=== PATIENT | female | born 1965 | race Caucasian/White ===

== ENCOUNTER 2018-01-29 12:31 | Outpatient (REF) | payer BC, SELFPAY ==
--- NOTE | 2018-01-29 11:00 | ENDOMET_PTH ---
PATIENT: Rosy Crowe LOC: [facility] U#:[id number] AGE/SX: 52/F ROOM: RE01/29/[address]: Avril Montgomery : 1965 BED: DIS: 01/29/2018 SPEC #: [id number] RECD: 01/29/18 12:50 STATUS: WAGNER REQ #: [id number] AMI: 01/29/18 11:[address]: Avril Montgomery DEPT: Surgical Specimen RECD BY: Jessie Bernabe ENTERED: 01/29/18 12:50 SP TYPE: Endomet OTHR DR: Beatriz Kathleen Tissues: 1 - ENDOMETRIUM BX/SERGIO Procedures: GROSS AND MICRO LEVEL 4 Comments: [id number]
== END 2018-01-29 12:51 ==
LOC: LBN 12:31
PROVIDERS: PCP Family Medicine; Visit Provider Obstetrics & Gynecology Gynecology
DX: N85.8 Other specified noninflammatory disorders of uterus (principal); N95.0 Postmenopausal bleeding; N85.00 Endometrial hyperplasia, unspecified
CPT/HCPCS: 88305

== ENCOUNTER 2019-04-09 01:23 | Outpatient (CLI) | payer BC, SELFPAY ==
--- NOTE | 2019-04-09 12:15 | DI.MAMMO_ITS ---
EXAM: MAMMO SCREENING CLINICAL HISTORY: Screening, Z12.39 TECHNIQUE: Mammograms were interpreted according to the usual protocol including computer analysis w [employer] CAD system, tomosynthesis and C-view imaging. COMPARISON: Current examination is compared with previous examinations including October 2017 FINDINGS: The breasts are heterogeneously dense. No mass or clumped microcalcification is seen. Current exami nation is compared with previous examinations including October 2017 and there is a question of increase d prominence of focal asymmetric radiodensity projected in the central portion of right breast on CC and MLO views. Additional mammographic views of this area are requested to include CC and MLO spot c ompression views. IMPRESSION: Additional mammographic views of the right breast requested as described above. Breast ultrasound may be indicated as well depending on the results of the additional mammographic views. Category 0, pete ast density category C. BI-RADS Cat 0 - Assessment Incomplete: Need additional imaging evaluation Breast Density - Category C - Heterogeneously dense
== END 2019-04-09 01:43 ==
PROVIDERS: PCP Family Medicine; Visit Provider Obstetrics & Gynecology Gynecology
DX: Z12.31 Encounter for screening mammogram for malignant neoplasm of breast (principal); R92.8 Other abnormal and inconclusive findings on diagnostic imaging of breast
CPT/HCPCS: 77063; 77067

== ENCOUNTER 2019-04-12 03:16 | Outpatient (CLI) | payer BC, SELFPAY ==
--- NOTE | 2019-04-12 10:09 | DI.MAMMO_ITS ---
EXAM: ADDITIONAL VIEWS OF THE RIGHT BREAST AND US BREAST RT LIMITED CLINICAL HISTORY: F/U ABNL MAMMO; ?INCREASED PROMINENCE OF FOCAL ASYMMETRIC RADIODENSITY TECHNIQUE: Additional images are interpreted according to the usual protocol including tomosynthesis and 2D imaging. Ultrasound performed using standard protocol. COMPARISON: October 2017 and April 09, 2019 FINDINGS: Additional mammographic views of the right breast and right breast ultrasound are interpreted in conj unction. These examinations were obtained to evaluate questionable area of focal asymmetric density seen in the upper outer quadrant of the breast on recent mammogram. Additional mammographic views fa il to show a discrete mass. Breast ultrasound shows no evidence of a mass or cyst. IMPRESSION: No specific evidence of malignancy at this time. Follow-up unilateral right breast mammogram requeste d in 6 months. Category 3, breast density category C. BI-RADS Cat 3 - 6 month - Probably Benign Finding: Recommend follow-up mammography in 6 months Breast Density - Category C - Heterogeneously dense
== END 2019-04-12 03:36 ==
PROVIDERS: PCP Family Medicine; Visit Provider Obstetrics & Gynecology Gynecology
DX: Z12.31 Encounter for screening mammogram for malignant neoplasm of breast (principal); R92.8 Other abnormal and inconclusive findings on diagnostic imaging of breast; N64.59 Other signs and symptoms in breast
CPT/HCPCS: 76642; 77063; 77067

== ENCOUNTER 2019-10-14 00:06 | Outpatient (CLI) | payer BC, SELFPAY ==
--- NOTE | 2019-10-14 | DI.MAMMO_ITS ---
EXAM: MG MAMMO DIAGNOSTIC UNI CLINICAL HISTORY: F/U ABNL MAMMO, 6 MO F/U RT MAMMO. COMPARISON: SCREENING ELIZABETH MAMMO W/CAD DIGI from 11/08/2012 Screening Bilat Mammo from 12/05/2014 MG MAMMO SCREENING from 04/09/2019 TECHNIQUE: Craniocaudal and mediolateral oblique Full Field Digital Mammography views of the breast with Computer Aided Diagnosis followed by Tomosynthesis and breast ultrasound. FINDINGS: Mammography/Tomosynthesis: This is a six-month follow-up exam for questioned area of asymmetric dense in the upper outer quadran t. Masses/Architectural Distortion: None seen. Microcalcifications: No suspicious pleomorphic-type are seen. Skin Thickening/Nipple Retraction: None. IMPRESSION: 1. No evidence of malignancy is noted. 2. Unless there is more urgent need, follow-up screening mammography is recommended, in 6 months. BI-RADS Cat 1 - Negative Breast Density - Category C - Heterogeneously dense The mammogram demonstrates the patient's breast tissue is dense. Dense breast tissue is very common a nd is not abnormal but dense breast tissue can make it harder to find cancer on a mammogram. Also, de nse breast tissue may increase their breast cancer risk. This information about the result of the [facility] mogram report was provided to the patient to raise their awareness. Use this report when you speak wi th the patient about their risks for breast cancer, which includes their family history. At that time , you may recommend for more screening tests (Ultrasound or MRI) as they might be useful based on the ir risk. A negative radiographic report should not delay biopsy if a dominant or clinically suspicious mass is present. Up to ten percent of cancers are not identified on mammography. A negative report may reinforce clinical impression. Adenosis and dense breasts may obscure an underlying neoplasm. False positive reports average 6 to 10%. Patient will receive a letter notifying them of these results.
== END 2019-10-14 00:26 ==
PROVIDERS: PCP Family Medicine; Visit Provider Obstetrics & Gynecology Gynecology
DX: Z12.31 Encounter for screening mammogram for malignant neoplasm of breast (principal); R92.8 Other abnormal and inconclusive findings on diagnostic imaging of breast; N64.59 Other signs and symptoms in breast
CPT/HCPCS: 77061; 77065; G0279

== ENCOUNTER 2020-10-05 17:25 | Outpatient (REF) | payer BC, SELFPAY ==
--- NOTE | 2020-10-05 13:20 | PAPFT_PTH ---
PATIENT: Rosy Crowe LOC: [facility] U#:[id number] AGE/SX: 55/F ROOM: RE10/05/[address]: Avril Montgomery : 1965 BED: DIS: 10/05/2020 SPEC #: [id number] RECD: 10/05/20 18:11 STATUS: WAGNER REQ #: [id number] AMI: 10/05/20 13:[address]: Avril Montgomery DEPT: [facility] Cytology RECD BY: Jessie Bernabe ENTERED: 10/05/20 18:11 SP TYPE: PAPFT OTHR DR: Beatriz Kahtleen Tissues: 1 - CX/ENDOCX FOR PAP SMEARS Procedures: PAP THIN PREP/UVM Screening HPV DNA PROBE Comments: [id number]
== END 2020-10-05 17:26 | disposition home or self-care (01) ==
LOC: LBN 17:25
PROVIDERS: PCP Family Medicine; Visit Provider Obstetrics & Gynecology Gynecology
DX: Z12.4 Encounter for screening for malignant neoplasm of cervix (principal); Z11.51 Encounter for screening for human papillomavirus (HPV)
CPT/HCPCS: 88142; 87624

== ENCOUNTER 2020-10-08 04:24 | Outpatient (CLI) | payer BC, SELFPAY ==
[2020-10-08 11:20] LABS: HCT 40.2 % (36.0-46.0); HGB 13.9 g/dL (11.2-15.7); MCH 31.1 pg (27.0-33.0); MCHC 34.6 % (32.0-36.0); MCV 89.9 fL (80-95); MPV 11.2 fL (8.0-11.0); Platelet Count 165 10^3/uL (130-400); RBC 4.47 10^6/uL (3.93-5.22); RDW 11.9 % (11.7-14.6); RDW-SD 38.8 fL; WBC 3.54 10^3/uL (4.4-10.8)
[2020-10-08 12:20] LABS: Calculated LDL 106 mg/dL (<100); Cholesterol 196 mg/dL (<200); Glucose 102 mg/dL (74-106); HDL Cholesterol 82 mg/dL (40-60); Triglyceride 44 mg/dL (<150)
== END 2020-10-08 04:25 | disposition home or self-care (01) ==
LOC: LBO 04:25
PROVIDERS: PCP Family Medicine; Visit Provider Obstetrics & Gynecology Gynecology
DX: Z00.00 Encounter for general adult medical examination without abnormal findings (principal); Z13.1 Encounter for screening for diabetes mellitus; Z13.220 Encounter for screening for lipoid disorders
CPT/HCPCS: 36415; 80061; 82947; 85027

== ENCOUNTER → 2022-01-17 01:43 | Outpatient (CLI) | payer BC, SELFPAY ==
--- NOTE | 2022-01-17 07:30 | DI.MAMMO_ITS ---
Exam(s) MAMMO SCREENING EXAM: MAMMO SCREENING CLINICAL HISTORY: screening,z12.39 TECHNIQUE: Mammograms were interpreted according to the usual protocol including computer analysis w [employer] CAD system, tomosynthesis and C-view imaging. COMPARISON: 2012 through 2019 FINDINGS: The breasts are composed of scattered fibroglandular densities, Breast Density category B. No suspicious masses or suspicious microcalcifications are seen. No skin thickening or abnormal axillary lymph nodes are seen. There has been no significant change from prior exams. IMPRESSION: BI-RADS Category 1, Negative mammogram Yearly screening mammography is recommended. Breast Density - Category B, scattered fibroglandular densities. A negative radiographic report should not delay biopsy if a dominant or clinically suspicious mass is present. Up to ten percent of cancers are not identified on mammography. A negative report may reinforce clinical impression. Adenosis and dense breasts may obscure an underlying neoplasm. False positive reports average 6 to 10%. Patient will receive a letter notifying them of these results.
== END ==
PROVIDERS: PCP Family Medicine; Visit Provider Obstetrics & Gynecology Gynecology
DX: Z12.31 Encounter for screening mammogram for malignant neoplasm of breast (principal)
CPT/HCPCS: 77063; 77067

== ENCOUNTER 2022-06-12 20:47 | Inpatient (IN) | payer BC, SELFPAY ==
--- NOTE | 2022-06-12 20:45 | RT.EKG_ITS ---
APPROVED REPORT Exam: Resting ECG Reason for Exam: abd pain Patient Location: E HR:84 bpm ECG Measurements Heart Rate 84 AXIS TX 172 P 61 QRSd 97 QRS -1 QT 401 T 50 QTc 475 Conclusion Sinus rhythm...normal P axis, V-rate 60- 99 Probable left atrial enlargement...P >50mS, <-0.10mV V1 Physician: mild depressions in anterior/lateral leads, no elevation, no stemi
[2022-06-12 20:49] VITALS: BP 128/92; PULSE 84; RESP 18; TEMP 36.6; O2SAT 98
--- OUTSIDE RECORDS SUMMARY | 2022-06-12 20:52 | XMS_ITS | Continuity of Care Document ---
Author Name Unknown Organization [facility] Ambulatory Clinics Address [address] [place] [address] Care Team Providers Care Mill Stenciler Name Role Phone Unavailable, Physician Primary Care Physician Un available Encounter [facility] NBR [id number] Date(s): 05/24/22 - 05/24/22 [facility] Ambulatory Clinics [address] [place], [place] [address] Patient Care team information Care Team Personnel Name: Unavailable, Physician Position: No Access Member Role: Primary Care Physician
--- NOTE | 2022-06-12 21:04 | ED.GENADUL_ITS ---
Discharge Plan Discharge Details Chief Complaint: Abd Prob Primary Care Provider: Gudelia Gay ED Provider: Salud Mcdowell Home Meds and New Rx's Prescriptions: No Action multivitamin [Daily Multi-Vitamin] 1 EACH tablet 1 ea PO MAGNESIUM DAILY OLIVE LEAF DAILY VITAMIN C DAILY VITAMIN D3 DAILY Medical Decision Making Patient is a pleasant 56-year-old female presenting today with chief complaint of abdominal pain. She reports that she been having episodes of abdominal pain for quite some time now but these have been increasing in frequency and severity. Pain came on this time about 3 hours ago after eating lunch. Does state that she had an alcoholic beverage at lunch. Since that time, has had pain in the epigastric and right upper quadrant pain that does have some radiation into the back. Patient did undergo a ultrasound 2 weeks ago for similar pain historically. At that time, patient was noted to have cholelithiasis but no evidence of cholecystitis. Patient has been trying to avoid fatty foods. No recent medication changes. Reports that she drinks alcohol about 4 times a week. Did have some alcohol today. On exam, patient appears anxious but nontoxic. Lungs are clear, normal cardiac exam. Exam of her abdomen is significant for right upper quadrant pain as well as some epigastric discomfort. Positive Coronado's exam. No CVA tenderness. Primarily concern for acute cholecystitis at this time. Will obtain imaging. Unable to obtain an ultrasound but will obtain CAT scan. We will also obtain baseline labs. Patient initially declined any analgesics but then agrees to acetaminophen. While she has had nausea historically, denies any currently. Declines any antiemetics. Labs reviewed. Significant for transaminitis. She has normal white count. Normal H&H. T. bili elevated 2.8. AST 648, ALT 468, alk phos 121. Lipase within normal limits. Troponin was obtained after EKG was reviewed by Dr. Jimenes and ST depression was appreciated. She is not having any shortness of breath or chest pain. Has been active without any exacerbation of her symptoms. These are purely elicited with food. Urinalysis significant for small amount of blood and ketones. Reviewed CT scan. Concern for large gallstone. Cyst in the liver is noted as are fibroids. With these findings as well as findings in the labs, we will move forward with consultation with general surgery. Dr. Gerardo at bedside. He advised patient will need to a cholecystectomy. Recommended to begin Zosyn. Patient has been n.p.o. and is receiving IV fluids since being here. FINDINGS: Lungs: Bibasilar linear parenchymal scarring or subsegmental collapse / atelectasis. Liver: 3.4 cm cyst within the superior right lobe of the liver. Minimal intrahepatic biliary dilatation. Gallbladder and bile ducts: Cholelithiasis, otherwise normal gallbladder. Multiple closely-adjacent calcified stones within the mid to distal common bile duct for a length of 2.2 cm (coronal images 40-41 / sagittal images 69-71). Dilated proximal common bile duct measuring 6.3 cm in caliber. Mildly dilated common hepatic duct. Minimally dilated intrahepatic biliary system. Pancreas: Normal. No ductal dilation. Spleen: Normal. No splenomegaly. Adrenal glands: Normal. No mass. Kidneys and ureters: No hydronephrosis. No calcified renal or ureteral stones. No perinephric stranding or perinephric fluid. Stomach and bowel: Unremarkable. No obstruction. No mucosal thickening. Appendix: No evidence of appendicitis. Intraperitoneal space: No intraperitoneal free air. Minimal free fluid in the cul-de-sac. Vasculature: No abdominal aortic aneurysm. Lymph nodes: No enlarged lymph nodes. Urinary bladder: Unremarkable as visualized. Reproductive: Enlarged lobulated uterus with multiple leiomyomas, some of which contain partial calcification. Bones/joints: Unremarkable for patient age. Soft tissues: Small fat-containing umbilical hernia. IMPRESSION: 1. ? Cholelithiasis, otherwise normal gallbladder. 2. ? Multiple closely-adjacent calcified stones within the mid to distal common bile duct for a length of 2.2 cm (coronal images 40-41 / sagittal images 69-71).? Dilated proximal common bile duct measuring 6.3 cm in caliber.? Mildly dilated common hepatic duct.? Minimally dilated intrahepatic biliary system. 3. ? Enlarged lobulated uterus with multiple leiomyomas, some of which contain partial calcification. Dr. Gerardo and I discussed these findings. He advised now that patient will need an ERCP. [place] [facility] [place] Transfer center advised that we will need to be a down and back procedure. Would not currently have any inpatient beds available so patient will be in the emergency department. I also reached out to [facility] and they are not able to accept the patient in any form. Dr. Gerardo discussed down backup for ERCP followed by subsequent cholecystectomy with the patient and her significant other. They are in agreement with this plan. Patient did have heightened anxiety, will give Ativan. She is remaining n.p.o. after midnight, receiving fluids. At the end of my shift, care transition to Dr. Jimenes pending Discussion with GI at [facility] to help arrange for ERCP for down and back tomorrow. Dr. Gerardo has officially admitted the patient, will need to board in the emergency department overnight. HPI General Date/Time Provider Initiated Documentation: 06/12/22 21:04 . Limitations to Documentation: no limitations . Information obtained by: patient, family, RN notes reviewed and old records reviewed . History of Present Illness 56 year old F presents to the emergency department with the chief complaint of abdominal pain, described as severe and similar to prior episodes, with intensity rated at 7. Quality is described as stabbing, and is localized to the abdomen. Patient reports radiation to back. Patient started experiencing this hour(s) (3) and it has been constant. No relieving factors improve symptom(s), Eating worsens symptoms (has had similar episodes in the past, exacerbated by eating) . Patient notes loss of appetite, malaise and nausea/vomiting (nausea, no vomiting); denies chest pain, cough, fever/chills, rash and shortness of breath. Patient did receive the following treatments prior to arrival, none Related Data Home Medications Medication Instructions Recorded Confirmed Magnesium DAILY 10/10/12 01/17/22 [place] [employer] DAILY 10/10/12 01/17/22 Vitamin C DAILY 10/10/12 01/17/22 Vitamin D3 DAILY 10/10/12 01/17/22 multivitamin (Daily Multi-Vitamin 1 ea PO 10/10/12 01/17/22 tablet) Allergies Allergy/AdvReac Type Severity Reaction Status Date / Time No Known Allergies Allergy Unverified 01/17/22 10:09 General Stated Complaint: Abd Prob ALEE: 3 Review of Systems Constitutional Constitutional: Reports as per HPI, Denies chills, Denies fever(s) and Denies headache(s) ENT Ears, Nose, Mouth, and Throat: Denies headache(s) Cardiovascular Cardiovascular: Reports as per HPI, Denies chest pain and Denies dyspnea Respiratory Respiratory: Reports as per HPI, Denies cough and Denies dyspnea Gastrointestinal Gastrointestinal: Reports as per HPI Musculoskeletal Musculoskeletal: Reports as per HPI Integumentary/Breasts Skin/Breast: Reports as per HPI and Denies rash Neurologic Neurologic: Reports as per HPI and Denies headache(s) PFSH All Active Problems (Updated 06/12/22 @ 23:49 by Otoniel Gerardo IV, MD) Choledocholithiasis with obstruction (Acute) Increased endometrial stripe thickness (Acute) 01/2018. 11mm ES, incidental finding @ time of u/s for uterine fibroids. Be nign path. Submucous leiomyoma of uterus (Acute 10/10/12) Fibroid uterus (Chronic 11/17/14) 10/2017. Uterus 13cm length. 2 fibroids ~ [id number] intramural. Medical History Uterine leiomyoma Currently not symptomatic. Expectant management planned Surgical History Tonsillectomy age 6yrs Family History Father No problems noted. Mother No problems noted. Social History (Updated 04/06/19 @ 16:16 by Avril Montgomery MD) Smoking/Tobacco Use Status: Former Tobacco Use Smoking risk assessment performed?: Yes Alcohol Intake: current Alcohol Intake frequency: 0-2 drinks per day Counseling given: Yes (recommended only 1 drink/day) Drug use: Rarely Substance use type: marijuana Details: a couple puffs every once in awhile Household members: spouse and other Details: Sho. children live near her. Number of Children: 2 current occupation: [employer]. 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 Sexually active: Yes Seatbelt use: always Do you feel safe at home: Yes Do you feel safe in your relationship?: Yes Female Reproductive History Menstrual control method: none Menopause type: natural (2017) History History 2 Para Hx # Term Pregnancies Multiple births Hx # Pregnancies Ectopic pregnancies AB induced Hx Number of Living Children 2 AB spontaneous Exam Const General: cooperative, healthy appearing, comfortable, no acute distress and well developed Nutritional Appearance: average body habitus and well nourished Orientation: alert and awake HENMT Head: normal to inspection Mouth: moist mucous membranes Resp Effort & Inspection: normal respiratory effort, able to speak in complete sent ences and no respiratory distress Auscultation: clear to auscultation bilaterally, no rales, no rhonchi and no wheezes Cardio Rate: regular rate Rhythm: regular rhythm Heart Sounds: S1 normal and S2 normal GI Inspection: normal to inspection Palpation: soft, no hepatosplenomegaly, no hepatomegaly, no masses, no pulsatile masses, not rigid, tender in the epigastrum, in the RUQ and Coronado's sign positive; not at McBurney's point and with no rebound tenderness and No ascites Percussion: normal to percussion Auscultation: hypoactive bowel sounds Back/Spine/Pelvis Back: no CVA tenderness Skin General skin exam: no rashes or lesions noted Trauma: no lacerations or abrasions Neuro General: patient alert and patient awake Cognition: normal cognition Speech: speech normal Gait: normal gait Psych Appearance: grossly normal and well kempt Mental Status: mental status grossly normal Speech and Movement: speech and movement normal Course Vital Signs Vital signs: Vital Signs Temperature 36.6 C 06/12/22 20:49 Pulse 84 06/12/22 20:49 Respiratory Rate 18 06/12/22 20:49 Blood Pressure 128/92 H 06/12/22 20:49 Pulse Oximetry 98 06/12/22 20:49 Temperature 36.6 C 06/12/22 20:49 Temperature Source Oral 06/12/22 20:49 Pulse 84 06/12/22 20:49 Respiratory Rate 18 06/12/22 20:49 Blood Pressure 128/92 H 06/12/22 20:49 Blood Pressure Position Sitting 06/12/22 20:49 Pulse Oximetry 98 06/12/22 20:49 Oxygen Delivery Method Room Air 06/12/22 20:49 Oxygen Flow Rate 0 06/12/22 20:49 Pain Level 7 06/12/22 20:49
--- NOTE | 2022-06-12 21:18 | DI.CT_ITS ---
Exam(s) CT ABDOMEN PELVIS W EXAM: CT ABDOMEN PELVIS W CLINICAL HISTORY: RUQ pain. TECHNIQUE: Imaging Protocol: Axial computed tomography images with coronal and sagittal reformatted images were created and reviewed CONTRAST MATERIAL: Intravenous: Omnipaque 350 Contrast volume:100 ml Oral: no COMPARISON: US US ABDOMEN LIMITED from 06/02/2022 FINDINGS: ABDOMEN: Lung Bases: Normal where visualized. Liver: Normal density. Cyst again noted. Gallbladder and biliary tract: Cholelithiasis. Minimal gallbladder wall thickening. Multiple small stones are noted within the common bile duct. Few stones are seen at the distal common bile duct. T he biliary system is mildly dilated. Pancreas: Normal density, no abnormal calcifications or inflammatory process. Spleen: Normal. Kidneys: Normal size, contour and axis. No radiodense stones or obstructive uropathy. No suspicious m asses seen. Adrenal glands: No masses seen. Abdominal Aorta: Abdominal portion non-dilated. Soft tissues: Small fatty containing umbilical hernia. PELVIS: Bladder: No gross wall thickening. No calculi.No focal mass. Bowel: No obstruction. No bowel wall thickening. Been sub appendicitis. Peritoneal cavity: No ascites, collection or mesenteric inflammatory response. Bones: Within normal limits for age. Reproductive organs: Enlarged uterus with multiple fibroids. Lymph nodes: Unremarkable. Impression: Cholelithiasis. Numerous tiny stones are noted within the common bile duct, causing mild dilatation. RADIATION DOSE DELIVERED: 769.51mGy.cm Total DLP DATA REPOSITORY: All CT scans at this facility are submitted to the National Radiology Data Registry (NRDR) Dose Index Registry (DIR) with the [employer] (ACR). RADIATION OPTIMIZATION: All CT scans at this facility use at least one of these dose optimization te chniques: automated exposure control; mA and/or kV adjustment per patient size (includes targeted exa ms where dose is matched to clinical indication); or iterative reconstruction.
[2022-06-12] MEDS: ACETAMINOPHEN 1,000 MG/100 ML BTL 400 MG IVPB (21:26)
[2022-06-12] MEDS: Lactated Ringers 1,000 ML 1000 ML IV (21:27)
[2022-06-12 21:32] LABS: Abs Immature Grans 0.02 10^3/uL (0.0-0.06); Absolute Basophil Count 0.02 10^3/uL (0.0-0.2); Absolute Eosinophil Count 0.05 10^3/uL (0.0-0.7); Absolute Lymphocyte Count 1.23 10^3/uL (1.2-3.4); Absolute Monocyte Count 0.59 10^3/uL (0.1-0.8); Absolute Neutrophil Count 5.15 10^3/uL (1.2-6.7); Basophils % 0.3; Eosinophils % 0.7; HGB 14.5 g/dL (11.2-15.7); Immature Grans % 0.3; Lymphocytes % 17.4; MCHC 34.5 % (32.0-36.0); MCV 90 fL (80-95); MPV 11.2 fL (8.0-11.0); Monocytes % 8.4; Neutrophils % 72.9; Platelet Count 170 10^3/uL (130-400); RBC 4.67 10^6/uL (3.93-5.22); RDW 11.9 % (11.7-14.6); RDW-SD 39.2 fL; WBC 7.06 10^3/uL (4.4-10.8)
[2022-06-12 21:34] LABS: Bilirubin Negative (Negative); Blood Small (Negative); Clarity Sl Cloudy (Clear); Glucose Negative (Negative); Ketones 40 mg/dL (Negative); Leukocyte Esterase Trace (Negative); Nitrite Negative (Negative); Specific Gravity >= 1.030 (1.005-1.025); Urobilinogen 0.2 mg/dL (Up to 0.2)
[2022-06-12 21:46] LABS: Bacteria Few HPF (Negative); C & S Indicated? Yes; Crystals Negative HPF (Negative); Epithelial Cells Rare HPF (Negative); Mucus Moderate (Negative); RBC 0-2 HPF (0-2)
[2022-06-12 21:50] LABS: ALT 468 U/L (14-59); AST 648 U/L (15-37); Albumin 4.6 g/dL (3.4-5.0); Alkaline Phosphatase 121 U/L (46-116); Anion Gap 9.4 mmol/L (3-11); BUN 21 mg/dL (7-18); Bilirubin, Total 2.8 mg/dL (0.2-1.0); CO2 27.6 mmol/L (21.0-32.0); CREATININE 0.7 mg/dL (0.55-1.02); Chloride 104 mmol/L (98-107); Estimated GFR 100.81 (mL/min/1.73m2); Glucose 114 mg/dL (74-106); Lipase 49 U/L (16-77); Magnesium 2.2 mg/dL (1.8-2.4); Potassium 3.6 mmol/L (3.5-5.1); Sodium 141 mmol/L (136-145); Total Protein 7.2 g/dL (6.4-8.2); Troponin I < 50 ng/L (<or=60)
[2022-06-12] MEDS: Normal Saline - Diluent 50 ML VIAL IJ (22:16)
[2022-06-12] MEDS: Omnipaque 350 MG/ML 100 ML BTL IJ (22:16)
[2022-06-12] MEDS: Normal Saline Flush 10 ML SYR IVP (22:16)
[2022-06-12 23:09] LABS: Prothrombin Time 10.2 sec (9.3-11.0)
--- NOTE | 2022-06-12 23:17 | DI.VRAD_ITS ---
PROCEDURE INFORMATION: Exam: CT Abdomen And Pelvis With Contrast Exam date and time: 06/12/2022 10:15 PM Age: 56 years old Clinical indication: RUQ abdominal pain TECHNIQUE: Imaging protocol: Computed tomography of the abdomen and pelvis with contrast. Contrast material: OMNIPAQUE 350; Contrast volume: 90 ml; Contrast route: INTRAVENOUS (IV); COMPARISON: US ABDOMEN LIMITED 06/02/2022 7:59 AM FINDINGS: Lungs: Bibasilar linear parenchymal scarring or subsegmental collapse / atelectasis. Liver: 3.4 cm cyst within the superior right lobe of the liver. Minimal intrahepatic biliary dilatation. Gallbladder and bile ducts: Cholelithiasis, otherwise normal gallbladder. Multiple closely-adjacent calcified stones within the mid to distal common bile duct for a length of 2.2 cm (coronal images 40-41 / sagittal images 69-71). Dilated proximal common bile duct measuring 6.3 cm in caliber. Mildly dilated common hepatic duct. Minimally dilated intrahepatic biliary system. Pancreas: Normal. No ductal dilation. Spleen: Normal. No splenomegaly. Adrenal glands: Normal. No mass. Kidneys and ureters: No hydronephrosis. No calcified renal or ureteral stones. No perinephric stranding or perinephric fluid. Stomach and bowel: Unremarkable. No obstruction. No mucosal thickening. Appendix: No evidence of appendicitis. Intraperitoneal space: No intraperitoneal free air. Minimal free fluid in the cul-de-sac. Vasculature: No abdominal aortic aneurysm. Lymph nodes: No enlarged lymph nodes. Urinary bladder: Unremarkable as visualized. Reproductive: Enlarged lobulated uterus with multiple leiomyomas, some of which contain partial calcification. Bones/joints: Unremarkable for patient age. Soft tissues: Small fat-containing umbilical hernia. IMPRESSION: 1. Cholelithiasis, otherwise normal gallbladder. 2. Multiple closely-adjacent calcified stones within the mid to distal common bile duct for a length of 2.2 cm (coronal images 40-41 / sagittal images 69-71). Dilated proximal common bile duct measuring 6.3 cm in caliber. Mildly dilated common hepatic duct. Minimally dilated intrahepatic biliary system. 3. Enlarged lobulated uterus with multiple leiomyomas, some of which contain partial calcification. Dictated and Authenticated by: Fredrick Delgado MD. Ordering:KAYLAN Brannon MD
--- NOTE | 2022-06-12 23:44 | W.PM.HP.N ---
Date of service: 06/12/22 Time of Service: 23:44 Assessment and Plan Assessment and plan (1) Choledocholithiasis with obstruction: Status: Acute Assessment and plan: 56-year-old female with choledocholithiasis, biliary colic, and biochemical obstructive jaundice without cholecystitis. Frequent recent postprandial right upper quadrant discomfort which is crampy in nature with radiation to the tip of the right scapula and mostly associated with fatty foods. Known large stone within the gallbladder and on tonight's imaging found to have toco lithiasis and elevated T bilirubin of 2.4 with a transaminitis and normal lipase. Zosyn has been started to prevent issues with biliary stasis from both cholelithiasis. She needs ERCP and this is being arranged with [facility]. Anticipate laparoscopic cholecystectomy on her return History of Present Illness History of Present Illness Chief Complaint: I am hurting again Narrative: 56-year-old female presents with choledocholithiasis and biochemical obstructive jaundice Known large gallstone identified on ultrasound 1 week ago after being ordered by her primary care provider. Multiple bouts of postprandial right upper quadrant discomfort usually brought on by fatty foods. Pain after eating tonight with crampy right upper quadrant pain and radiation to the tip of the right scapula and some degree of nausea. Imaging here shows large gallstone with no evidence to suggest cholecystitis and she has a white cell count of 7. She does however have LFT derangements with a T. bili of 2.8 and a transaminitis and elevated alkaline phosphatase. A contrasted CT scan of the abdomen and pelvis reveals multiple stones within the mid to distal common bile duct. She needs an ERCP prior to laparoscopic cholecystectomy. Discussions have been had with [facility] who are willing to perform it tomorrow and send her back afterwards tomorrow afternoon. She has been placed on Zosyn Review of Systems Narrative: A 12 point review of systems was performed and is unremarkable other than as above PFSH All Active Problems (Updated 06/12/22 @ 23:49 by Otoniel Gerardo IV, MD) Choledocholithiasis with obstruction (Acute) Increased endometrial stripe thickness (Acute) 01/2018. 11mm ES, incidental finding @ time of u/s for uterine fibroids. Benign path. Submucous leiomyoma of uterus (Acute 10/10/12) Fibroid uterus (Chronic 11/17/14) 10/2017. Uterus 13cm length. 2 fibroids ~ [id number] intramural. Medical History Uterine leiomyoma Currently not symptomatic. Expectant management planned Surgical History Tonsillectomy age 6yrs Family History Father No problems noted. Mother No problems noted. Social History (Updated 04/06/19 @ 16:16 by Avril Montgomery MD) Smoking/Tobacco Use Status: Former Tobacco Use Smoking risk assessment performed?: Yes Alcohol Intake: current Alcohol Intake frequency: 0-2 drinks per day Counseling given: Yes (recommended only 1 drink/day) Drug use: Rarely Substance use type: marijuana Details: a couple puffs every once in awhile Household members: spouse and other Details: Sho. children live near her. Number of Children: 2 current occupation: [employer]. 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 Sexually active: Yes Seatbelt use: always Do you feel safe at home: Yes Do you feel safe in your relationship?: Yes Female Reproductive History Menstrual control method: none Menopause type: natural (2016) History History 2 Para Hx # Term Pregnancies Multiple births Hx # Pregnancies Ectopic pregnancies AB induced Hx Number of Living Children 2 AB spontaneous Meds Allergies and Home Medications Allergies Allergy/AdvReac Type Severity Reaction Status Date / Time No Known Allergies Allergy Unverified 01/17/22 10:09 Home Medications Medication Instructions Recorded Confirmed Type Magnesium DAILY 10/10/12 01/17/22 History [place] DAILY 10/10/12 01/17/22 History Vitamin C DAILY 10/10/12 01/17/22 History Vitamin D3 DAILY 10/10/12 01/17/22 History multivitamin (Daily Multi-Vitamin 1 ea PO 10/10/12 01/17/22 History tablet) Exam Eyes Other: Nonicteric Resp Effort & Inspection: normal respiratory effort and able to speak in complete sentences Cardio Rate: regular rate Rhythm: regular rhythm GI Palpation: other (Tender to palpation right upper quadrant. Coronado's negative) Neuro General: patient alert and patient oriented x3 Extrem General: full ROM Results Imaging Abdomen CT scan report/results: report reviewed and image reviewed CT scan - pelvis: report reviewed and image reviewed Labs 06/12/22 21:22 06/12/22 21:22 Labs: Laboratory Results - last 24 hr 06/12/22 06/12/22 06/12/22 21:22 21:22 21:22 WBC 7.06 RBC 4.67 Hgb 14.5 Hct 42.0 MCV 90 MCH 31.0 MCHC 34.5 RDW 11.9 Plt Count 170 MPV 11.2 H Immature Gran % 0.3 Neutrophils % 72.9 Lymphocytes % 17.4 Monocytes % 8.4 Eosinophils % 0.7 Basophils % 0.3 Nucleated RBC % 0.0 Absolute Neutrophils 5.15 Absolute Lymphocytes 1.23 Absolute Monocytes 0.59 Absolute Eosinophils 0.05 Absolute Basophils 0.02 PT INR APTT Sodium 141 Potassium 3.6 Chloride 104 Carbon Dioxide 27.6 Anion Gap 9.4 BUN 21 H Creatinine 0.7 Est GFR (CKD-EPI 2020) 100.81 Glucose 114 H Calcium 9.0 Magnesium 2.2 Total Bilirubin 2.8 H AST 648 H ALT 468 H Alkaline Phosphatase 121 H Troponin I < 50 Total Protein 7.2 Albumin 4.6 Lipase 49 Urine Color Yellow Urine Clarity Sl Cloudy Urine pH 6.0 Ur Specific [place] >= 1.030 H Urine Protein Negative Urine Ketones 40 H Urine Blood Small H Urine Nitrite Negative Urine Bilirubin Negative Urine Urobilinogen 0.2 Ur Leukocyte Esterase Trace H Urine RBC 0-2 Urine WBC 5-10 Ur Epithelial Cells Rare Urine Crystals Negative Urine Bacteria Few Urine Mucus Moderate Ur Culture Indicated? Yes Urine Glucose Negative 06/12/22 22:51 WBC RBC Hgb Hct MCV MCH MCHC RDW Plt Count MPV Immature Gran % Neutrophils % Lymphocytes % Monocytes % Eosinophils % Basophils % Nucleated RBC % Absolute Neutrophils Absolute Lymphocytes Absolute Monocytes Absolute Eosinophils Absolute Basophils PT 10.2 INR 1.0 APTT 24.0 Sodium Potassium Chloride Carbon Dioxide Anion Gap BUN Creatinine Est GFR (CKD-EPI 2020) Glucose Calcium Magnesium Total Bilirubin AST ALT Alkaline Phosphatase Troponin I Total Protein Albumin Lipase Urine Color Urine Clarity Urine pH Ur Specific [place] Urine Protein Urine Ketones Urine Blood Urine Nitrite Urine Bilirubin Urine Urobilinogen Ur Leukocyte Esterase Urine RBC Urine WBC Ur Epithelial Cells Urine Crystals Urine Bacteria Urine Mucus Ur Culture Indicated? Urine Glucose Last Vital Signs Temp 36.6 C 06/12/22 20:49 Pulse 84 06/12/22 20:49 Resp 18 06/12/22 20:49 BP 128/92 H 06/12/22 20:49 Pulse Ox 98 06/12/22 20:49 PAWSS Have you Been Recently Intoxicated or Drunk Within the Last 30 days?: No Have you Ever Experienced Previous Episodes of Alcohol Withdrawal?: No Have you ever Experienced Withdrawal Seizures?: No Have you ever Experienced Delirium Tremens(DT)s?: No Have you ever undergone Alcohol Rehabilitation Treatment (i.e, inpt ot outpatient treatment programs)?: No Have you ever Experienced Blackouts?: No Have you ever Combined Alcohol with other Downers within the last 90 days?: No Have you ever Combined Alcohol with any other Substance of Abuse during the last 90 days?: No Positive Blood Alcohol level on Presentation? [PCS.BAL]: No Evidence of Increased Autonomic Activity (i.e. HR>120, tremor, sweating, agitation, nausea)?: No Result: 0 Time Spent Time spent with Patient: 40-54 minutes Time was spent: preparing to see the patient(eg.review tests), obtaining and/or reviewing separately otaunc health hiistory, referring, communicating with other health health care / medical job titles, indepentently interpreting results and counseling the patient
[2022-06-13] MEDS: LORazepam 2 MG/ML VIAL 1 MG IVP (00:03)
[2022-06-13] MEDS: Normal Saline 1,000 ML 150 ML IV (00:11)
[2022-06-13] MEDS: PIPERACILLIN/TAZO 3.375 GM in Normal Saline 50 ML IVPB ×4 (00:12→20:56)
[2022-06-13 00:32] LABS: Source Nasal/Nares
[2022-06-13 00:33] VITALS: BP 108/76; PULSE 86; RESP 16; TEMP 36.8; O2SAT 98
[2022-06-13 00:48] LABS: Troponin I < 50 ng/L (<or=60)
[2022-06-13 01:02] LABS: COVID-19 PCR Negative (Negative)
[2022-06-13 03:00] VITALS: RESP 16
--- NOTE | 2022-06-13 07:48 | W.PM.PROGNOT ---
Date of Service Date of service: 06/13/22 Time of Service: 07:48 Assessment and Plan Assessment and plan (1) Choledocholithiasis with obstruction: Status: Acute Assessment and plan: 56-year-old female with choledocholithiasis, biliary colic, and biochemical obstructive jaundice without cholecystitis. AM LFTs pending [facility] going for biliary stasis [facility] for ERCP pending Objective Last Vital Signs Temp 36.8 C 06/13/22 00:33 Pulse 86 06/13/22 00:33 Resp 16 06/13/22 03:00 BP 108/76 06/13/22 00:33 Pulse Ox 98 06/13/22 00:33 Laboratory Results - last 24 hr 06/12/22 06/12/22 06/12/22 21:22 21:22 21:22 WBC 7.06 RBC 4.67 Hgb 14.5 Hct 42.0 MCV 90 MCH 31.0 MCHC 34.5 RDW 11.9 Plt Count 170 MPV 11.2 H Immature Gran % 0.3 Neutrophils % 72.9 Lymphocytes % 17.4 Monocytes % 8.4 Eosinophils % 0.7 Basophils % 0.3 Nucleated RBC % 0.0 Absolute Neutrophils 5.15 Absolute Lymphocytes 1.23 Absolute Monocytes 0.59 Absolute Eosinophils 0.05 Absolute Basophils 0.02 PT INR APTT Sodium 141 Potassium 3.6 Chloride 104 Carbon Dioxide 27.6 Anion Gap 9.4 BUN 21 H Creatinine 0.7 Est GFR (CKD-EPI 2020) 100.81 Glucose 114 H Calcium 9.0 Magnesium 2.2 Total Bilirubin 2.8 H AST 648 H ALT 468 H Alkaline Phosphatase 121 H Troponin I < 50 Total Protein 7.2 Albumin 4.6 Lipase 49 Urine Color Yellow Urine Clarity Sl Cloudy Urine pH 6.0 Ur Specific [place] >= 1.030 H Urine Protein Negative Urine Ketones 40 H Urine Blood Small H Urine Nitrite Negative Urine Bilirubin Negative Urine Urobilinogen 0.2 Ur Leukocyte Esterase Trace H Urine RBC 0-2 Urine WBC 5-10 Ur Epithelial Cells Rare Urine Crystals Negative Urine Bacteria Few Urine Mucus Moderate Ur Culture Indicated? Yes Urine Glucose Negative COVID-19 Source SARS-CoV-2 (PCR) 06/12/22 06/12/22 06/13/22 22:51 23:44 00:23 WBC RBC Hgb Hct MCV MCH MCHC RDW Plt Count MPV Immature Gran % Neutrophils % Lymphocytes % Monocytes % Eosinophils % Basophils % Nucleated RBC % Absolute Neutrophils Absolute Lymphocytes Absolute Monocytes Absolute Eosinophils Absolute Basophils PT 10.2 INR 1.0 APTT 24.0 Sodium Potassium Chloride Carbon Dioxide Anion Gap BUN Creatinine Est GFR (CKD-EPI 2020) Glucose Calcium Magnesium Total Bilirubin AST ALT Alkaline Phosphatase Troponin I < 50 Total Protein Albumin Lipase Urine Color Urine Clarity Urine pH Ur Specific [place] Urine Protein Urine Ketones Urine Blood Urine Nitrite Urine Bilirubin Urine Urobilinogen Ur Leukocyte Esterase Urine RBC Urine WBC Ur Epithelial Cells Urine Crystals Urine Bacteria Urine Mucus Ur Culture Indicated? Urine Glucose COVID-19 Source Nasal/Nares SARS-CoV-2 (PCR) Negative PAWSS Have you Been Recently Intoxicated or Drunk Within the Last 30 days?: No Have you Ever Experienced Previous Episodes of Alcohol Withdrawal?: No Have you ever Experienced Withdrawal Seizures?: No Have you ever Experienced Delirium Tremens(DT)s?: No Have you ever undergone Alcohol Rehabilitation Treatment (i.e, inpt ot outpatient treatment programs)?: No Have you ever Experienced Blackouts?: No Have you ever Combined Alcohol with other Downers within the last 90 days?: No Have you ever Combined Alcohol with any other Substance of Abuse during the last 90 days?: No Positive Blood Alcohol level on Presentation? [PCS.BAL]: No Evidence of Increased Autonomic Activity (i.e. HR>120, tremor, sweating, agitation, nausea)?: No Result: 0 Time Spent with Patient Time Spent with Patient: <25 minutes Time was spent: preparing to see the patient(eg.review tests), referring, communicating with other health hearing care professional and counseling the patient
[2022-06-13] MEDS: Enoxaparin 40 MG/0.4 ML SYR SC (08:14)
[2022-06-13] MEDS: MORPHine 4 MG/ML SYR 2 MG IVP (08:15)
[2022-06-13] MEDS: DEXTROSE 5%-0.45% SALINE 1,000 ML 100 ML IV ×2 (08:15→17:49)
[2022-06-13 08:17] VITALS: BP 124/70; PULSE 73; RESP 18; O2SAT 97
--- NOTE | 2022-06-13 09:06 | NUR.NOTE ---
this RN spoke with surgeon about NPO diet. pt not having ERCP until tomorrow, surgeon to change diet to clear liquids
[2022-06-13 15:34] VITALS: BP 123/81; PULSE 69; RESP 20; TEMP 36.4; O2SAT 98
[2022-06-13] MEDS: Normal Saline Flush 10 ML SYR IVP (20:56)
[2022-06-13 23:02] VITALS: BP 125/77; PULSE 71; RESP 14; TEMP 36.8; O2SAT 97
[2022-06-14] MEDS: PIPERACILLIN/TAZO 3.375 GM in Normal Saline 50 ML IVPB ×4 (02:41→23:31)
[2022-06-14] MEDS: DEXTROSE 5%-0.45% SALINE 1,000 ML 100 ML IV ×2 (03:34→18:15)
[2022-06-14 07:52] VITALS: BP 122/81; PULSE 69; RESP 17; TEMP 37.1; O2SAT 99
[2022-06-14] MEDS: Butalbital/Acetaminophen/Caffeine 50/325/40 TAB PO (09:16)
--- NOTE | 2022-06-14 10:18 | NUR.NOTE ---
Nursing Note: report to rn at receiving facility [facility].
--- NOTE | 2022-06-14 12:17 | INITIAL_ITS ---
- If Service Date Differs Date of service: 06/14/22 Time of Service: 12:17 Care Management Initial Assess REASON FOR HOSPITALIZATION:: Choledocholithiasis PAST MEDICAL HISTORY/PAST SURGICAL HISTORY:: All Active Problems. Choledocholithiasis with obstruction (Acute). Increased endometrial stripe thickness (Acute). 01/2018. 11mm ES, incidental finding @ time of u/s for uterine fibroids. Benign path. Submucous leiomyoma of uterus (Acute 10/10/12). Fibroid uterus (Chronic 11/17/14). 10/2017. Uterus 13cm length. 2 fibroids ~ [id number] intramural. Medical History. Uterine leiomyoma. Currently not symptomatic. Expectant management planned. Surgical History. Tonsillectomy. age 6yrs PREVIOUS FUNCTIONAL STATUS/SOCIAL/FAMILY SUPPORTS:: Rosy lives in [place] with her , Conrado. She is independent at baseline. CURRENT FUNCTIONAL STATUS:: Rosy went [place] [facility] [place], therefore she was not available for an assessment. Information obtained from her chart. CM will continue to follow. ADVANCE DIRECTIVES:: Not on file. Has patient been provided with info about the portal/API?: Yes Did the patient sign up for the portal?: No CODE STATUS:: Full Code INSURANCE COVERAGE / FINANCIAL ISSUES:: [employer] CURRENT HOME/COMMUNITY SERVICES/EQUIPMENT:: No current services or equipment. PRIMARY CARE PHYSICIAN:: Gudelia Gay POTENTIAL DISCHARGE NEEDS:: Follow up appointments. PATIENT/FAMILY EDUCATION NEEDS:: Review discharge instructions and limitations, discussion of self care needs including ask me three. ANTICIPATED BARRIERS TO DISCHARGE:: None. TRANSPORTATION:: Via private vehicle by family. PLAN:: Anticipate Rosy will return home when medically cleared. Her will drive her home via private vehicle. She will follow up with her PCP and discharge plan of care. CM will continue to follow.
--- NOTE | 2022-06-14 14:09 | CHAPLAIN ---
Rosy was visiting with her when I stopped in. She said she will likely go to [facility] today for a procedure and then come back to [facility]. She's been here since 06/12 with pain likely having to with gall stones. I left a prayer shawl on her bed, as I missed seeing her again before she left for [facility].
--- NOTE | 2022-06-14 16:11 | NUR.NOTE ---
Nursing Note: @ [id number] received report from [facility] endo RN for pt. pt was placed under propofol sedation and intubated/extubated for procedure. pt had ercp. endo nurse endorses that there was use of epi and cauterization to the gallbladder near the sphincter during stone removal for some increased leaking. nurse endorses that pt should be NPO until pain free and advanced to clear liquids tonight as tolerated. endo nurse endorses vss, pt aox4. 100% and mild pain. pain location is throat after extubation.
[2022-06-14 17:31] VITALS: BP 152/99; PULSE 73; RESP 18; TEMP 37.2; O2SAT 96
[2022-06-14 17:54] VITALS: TEMP 37.2
[2022-06-14] MEDS: Acetaminophen 325 MG TAB 650 MG PO (17:54)
--- NOTE | 2022-06-14 19:06 | NUR.NOTE ---
Nursing Note: @1720 [facility] pt is aox4. no acute distress. vss with slight htn. pt is ambulatory and steady to bed. poc updated
--- NOTE | 2022-06-14 21:50 | W.PM.PROGNOT ---
Date of Service Date of service: 06/14/22 Time of Service: 18:00 Assessment and Plan Assessment and plan (1) Choledocholithiasis with obstruction: Status: Acute Assessment and plan: Fluids and pain management overnight- -Labs in a.m. -Patient is at risk for postprocedural pancreatitis -Most likely lap adolph on 25 mins spent with the patient today. Subjective Subjective Interval history since last seen: Pt is doing well. no headaches. No CP or SOB. no productive cough. no dysuria. no leg pain or swelling. Patient is back from her ERCP. I did review the notes from [facility] with her and her . She did have a large stone that required extraction and sphincterotomy. Patient is having some nausea and some mild epigastric pain currently. We did discuss that because the stone was so large that they are concerned for pancreatitis at [facility]. We will see how she is feeling. They did recommend to keep her n.p.o. this evening if she is not having any further nausea then she can have start with clears. We will check labs and lipase in a.m. to see how she is faring. Most likely her surgery will be on however. We will continue with supportive care at this time. Objective Last Vital Signs Temp 37.2 C 06/14/22 17:54 Pulse 73 06/14/22 17:31 Resp 18 06/14/22 17:31 BP 152/99 H 06/14/22 17:31 Pulse Ox 96 06/14/22 17:31 PAWSS Have you Been Recently Intoxicated or Drunk Within the Last 30 days?: No Have you Ever Experienced Previous Episodes of Alcohol Withdrawal?: No Have you ever Experienced Withdrawal Seizures?: No Have you ever Experienced Delirium Tremens(DT)s?: No Have you ever undergone Alcohol Rehabilitation Treatment (i.e, inpt ot outpatient treatment programs)?: No Have you ever Experienced Blackouts?: No Have you ever Combined Alcohol with other Downers within the last 90 days?: No Have you ever Combined Alcohol with any other Substance of Abuse during the last 90 days?: No Positive Blood Alcohol level on Presentation? [PCS.BAL]: No Evidence of Increased Autonomic Activity (i.e. HR>120, tremor, sweating, agitation, nausea)?: No Result: 0 Time Spent with Patient Time Spent with Patient: 25-34 minutes Time was spent: preparing to see the patient(eg.review tests), obtaining and/or reviewing separately otained hiistory, ordering medications,tests, procedures, referring, communicating with other health out of school hours care worker, indepentently interpreting results, counseling the patient and care coordination
[2022-06-14] MEDS: LORazepam 0.5 MG TAB PO (21:58)
[2022-06-14 23:04] VITALS: BP 117/72; PULSE 52; RESP 16; TEMP 36.5; O2SAT 97
[2022-06-15] MEDS: PIPERACILLIN/TAZO 3.375 GM in Normal Saline 50 ML IVPB ×3 (05:40→23:11)
[2022-06-15] MEDS: DEXTROSE 5%-0.45% SALINE 1,000 ML 100 ML IV (05:40)
[2022-06-15 06:36] LABS: Abs Immature Grans 0.01 10^3/uL (0.0-0.06); Absolute Basophil Count 0.01 10^3/uL (0.0-0.2); Absolute Eosinophil Count 0.05 10^3/uL (0.0-0.7); Absolute Lymphocyte Count 1.14 10^3/uL (1.2-3.4); Absolute Monocyte Count 0.31 10^3/uL (0.1-0.8); Basophils % 0.2; Eosinophils % 1.2; HCT 36.5 % (36.0-46.0); HGB 12.7 g/dL (11.2-15.7); Immature Grans % 0.2; Lymphocytes % 27.7; MCH 31.2 pg (27.0-33.0); MCHC 34.8 % (32.0-36.0); MCV 90 fL (80-95); MPV 11.7 fL (8.0-11.0); Monocytes % 7.5; Neutrophils % 63.2; Platelet Count 143 10^3/uL (130-400); RBC 4.07 10^6/uL (3.93-5.22); RDW 11.9 % (11.7-14.6); WBC 4.11 10^3/uL (4.4-10.8)
[2022-06-15 07:00] LABS: ALT 393 U/L (14-59); AST 95 U/L (15-37); Albumin 3.5 g/dL (3.4-5.0); Alkaline Phosphatase 87 U/L (46-116); Anion Gap 7.2 mmol/L (3-11); BUN 4 mg/dL (7-18); Bilirubin, Total 1.4 mg/dL (0.2-1.0); CO2 27.8 mmol/L (21.0-32.0); CREATININE 0.7 mg/dL (0.55-1.02); Calcium 8.9 mg/dL (8.5-10.1); Chloride 109 mmol/L (98-107); Estimated GFR 100.81 (mL/min/1.73m2); Glucose 124 mg/dL (74-106); Lipase 92 U/L (16-77); Magnesium 2.1 mg/dL (1.8-2.4); Potassium 3.4 mmol/L (3.5-5.1); Sodium 144 mmol/L (136-145)
[2022-06-15 07:40] VITALS: BP 136/77; PULSE 76; TEMP 36.9; O2SAT 98
[2022-06-15 07:46] VITALS: RESP 14
--- NOTE | 2022-06-15 09:48 | NUR.NOTE ---
Nursing Note: @0750 provided pt with clear liquids, jello, coffee, and juice. tolerated all things appropriately.denies pain, n/v
[2022-06-15 09:54] VITALS: O2SAT 98
[2022-06-15 13:56] VITALS: BP 106/70; PULSE 88; O2SAT 98
[2022-06-15 15:21] VITALS: BP 119/81; PULSE 87; RESP 16; TEMP 37.5; O2SAT 97
--- NOTE | 2022-06-15 16:32 | PDOC.CMPRO ---
- If Service Date Differs Date of service: 06/15/22 Time of Service: 16:32 Care Management Progress Note S/O: Rosy was walking around her room when CM met with her. Her was in the room visiting. She stated that [place] [facility] [place], and was told that she will likely remain at [facility] to have surgery tomorrow. She stated that she is looking forward to returning home as soon as she can. She reported that she had not yet seen the MD today, and understood that he would likely see her later in the afternoon. Later, she met with Dr. Lea, and was very happy with his plan, as he will be conducting the surgery tomorrow. CM will continue to follow. A: oRsy is a 56 year old female admitted to [facility] on 06/12/22 for choledocholithiasis. P: Anticipate Rosy will return home when medically cleared. Her will drive her home via private vehicle. She will follow up with her PCP and discharge plan of care. CM will continue to follow.
--- NOTE | 2022-06-15 17:36 | W.PM.PROGNOT ---
Date of Service Date of service: 06/15/22 Time of Service: 17:36 Assessment and Plan Assessment and plan (1) Choledocholithiasis with obstruction: Status: Acute Assessment and plan: Certainly, her exam today, and labs are very reassuring with regards to post ERCP pancreatitis. Based on the course of today, I think it is very reasonable to proceed with cholecystectomy tomorrow. We talked about the risks and benefits of the procedure, and she was able to provide informed consent. I will make arrangements to proceed the operating room tomorrow. Subjective Subjective Interval history since last seen: Rosy feels much better after ERCP. In fact, she is pain-free today, and says that this is the best that she has felt in weeks. Exam GI Other: Her abdomen is soft and nondistended. She is not tender. There is no rebound or guarding. Objective Last Vital Signs Temp 99.5 F 06/15/22 15:21 Pulse 87 06/15/22 15:21 Resp 16 06/15/22 15:21 BP 119/81 06/15/22 15:21 Pulse Ox 97 06/15/22 15:21 Laboratory Results - last 24 hr 06/15/22 06/15/22 05:52 05:52 WBC 4.11 L RBC 4.07 Hgb 12.7 Hct 36.5 MCV 90 MCH 31.2 MCHC 34.8 RDW 11.9 Plt Count 143 MPV 11.7 H Immature Gran % 0.2 Neutrophils % 63.2 Lymphocytes % 27.7 Monocytes % 7.5 Eosinophils % 1.2 Basophils % 0.2 Nucleated RBC % 0.0 Absolute Neutrophils 2.60 Absolute Lymphocytes 1.14 L Absolute Monocytes 0.31 Absolute Eosinophils 0.05 Absolute Basophils 0.01 Sodium 144 Potassium 3.4 L Chloride 109 H Carbon Dioxide 27.8 Anion Gap 7.2 BUN 4 L Creatinine 0.7 Est GFR (CKD-EPI 2020) 100.81 Glucose 124 H Calcium 8.9 Magnesium 2.1 Total Bilirubin 1.4 H AST 95 H ALT 393 H Alkaline Phosphatase 87 Total Protein 6.0 L Albumin 3.5 Lipase 92 H PAWSS Have you Been Recently Intoxicated or Drunk Within the Last 30 days?: No Have you Ever Experienced Previous Episodes of Alcohol Withdrawal?: No Have you ever Experienced Withdrawal Seizures?: No Have you ever Experienced Delirium Tremens(DT)s?: No Have you ever undergone Alcohol Rehabilitation Treatment (i.e, inpt ot outpatient treatment programs)?: No Have you ever Experienced Blackouts?: No Have you ever Combined Alcohol with other Downers within the last 90 days?: No Have you ever Combined Alcohol with any other Substance of Abuse during the last 90 days?: No Positive Blood Alcohol level on Presentation? [PCS.BAL]: No Evidence of Increased Autonomic Activity (i.e. HR>120, tremor, sweating, agitation, nausea)?: No Result: 0 Time Spent with Patient Time Spent with Patient: 25-34 minutes Time was spent: preparing to see the patient(eg.review tests), indepentently interpreting results, counseling the patient and care coordination
[2022-06-15] MEDS: Normal Saline Flush 10 ML SYR IVP (23:11)
[2022-06-15 23:36] VITALS: BP 124/85; PULSE 73; RESP 15; TEMP 37.1; O2SAT 95
[2022-06-16] VITALS (12 sets, daily range): BP systolic 111–152; BP diastolic 69–86; PULSE 55–83; RESP 11–21; TEMP 36.1–37.6; O2SAT 96–99; BMI 24.4
[2022-06-16] MEDS: PIPERACILLIN/TAZO 3.375 GM in Normal Saline 50 ML IVPB (05:17)
[2022-06-16] MEDS: Normal Saline Flush 10 ML SYR IVP (05:18)
[2022-06-16 06:41] LABS: HCT 34.2 % (36.0-46.0); HGB 12.2 g/dL (11.2-15.7); MCH 33.3 pg (27.0-33.0); MCHC 35.7 % (32.0-36.0); MCV 93 fL (80-95); MPV 11.6 fL (8.0-11.0); Platelet Count 146 10^3/uL (130-400); RBC 3.66 10^6/uL (3.93-5.22); RDW 12.7 % (11.7-14.6); WBC 4.18 10^3/uL (4.4-10.8)
[2022-06-16 06:57] LABS: ALT 262 U/L (14-59); AST 40 U/L (15-37); Albumin 3.5 g/dL (3.4-5.0); Alkaline Phosphatase 72 U/L (46-116); Anion Gap 9.9 mmol/L (3-11); BUN 9 mg/dL (7-18); Bilirubin, Total 1.1 mg/dL (0.2-1.0); CO2 27.1 mmol/L (21.0-32.0); CREATININE 0.8 mg/dL (0.55-1.02); Calcium 8.9 mg/dL (8.5-10.1); Chloride 110 mmol/L (98-107); Estimated GFR 85.89 (mL/min/1.73m2); Glucose 95 mg/dL (74-106); Lipase 74 U/L (16-77); Potassium 3.5 mmol/L (3.5-5.1); Sodium 147 mmol/L (136-145); Total Protein 5.8 g/dL (6.4-8.2)
--- NOTE | 2022-06-16 07:20 | W.PM.DS.N ---
Date of service: 06/16/22 Time of Service: 13:14 DS: Diagnosis Discharge Diagnosis (1) Choledocholithiasis with obstruction: Status: Acute Asessment and Plan: Routine postoperative care in the office Discharge Plan Disposition Patient Disposition: Home Condition: Good Discharge Details Reason For Visit: Choledocholithiasis Admit Date/Time: 06/12/22 23:38 Admit Provider: Otoniel Gerardo IV Attending Provider: Otoniel Gerardo IV Primary Care Provider: Gudelia Gay Hospital Course Hospital Course: Rosy is a 56-year-old woman who came to the hospital midepigastric pain and nausea. She underwent a CAT scan of the abdomen and pelvis that demonstrated choledocholithiasis. She was admitted to the hospital, started on antibiotics, and transferred down to [facility] for a down and back ERCP. She tolerated that procedure well. She did not experience any post ERCP pancreatitis. On June 16 she went to the operating room for cholecystectomy to reduce the chance of recurrent choledocholithiasis. She tolerated the procedure well, was a good candidate for discharge home. Home Meds and New Rx's Prescriptions: New tramadol 50 mg tablet 50 mg PO Q8H PRN (Reason: pain) Qty: 12 0RF Rx Instructions: Take 1 tablet by mouth up to every 8 hours as needed for severe pain. Do not drive while using this medication. Continued multivitamin [Daily Multi-Vitamin] 1 EACH tablet 1 ea PO DAILY Patient Comments: Take 1 daily per according to patient. MAGNESIUM 2 tab PO DAILY Patient Comments: take 1 in the morning and 1 at night. OLIVE LEAF 2 tab PO DAILY Patient Comments: Patient report she has not taken olive leaf. VITAMIN C 1 tab PO DAILY Patient Comments: Only takes when having cold. VITAMIN D3 1 tab PO DAILY Patient Comments: Has not been taken since last week. Discharge Instructions Instructions: Laparoscopic Cholecystectomy (GEN), ERCP (Endoscopic Retrograde Cholangiopancreatography) (GEN) Additional Instructions: Rosy, as you probably recall, you had stones in your gallbladder. Unfortunately, some of those stones left her gallbladder and became trapped in the duct that drains your liver. You required a procedure called ERCP to remove the stones, and make sure that the duct was clear. You had a good response with regards to your labs. We brought you to the operating room on June 16 and removed her gallbladder using a laparoscopic approach. The operation went very smoothly. We have attached some information here regarding those diagnoses, and treatments. There are some basic instructions below with regards to your postoperative care. I look forward to seeing you in the office on June. If you have any questions or problems in the meantime, please feel free to call our office at any time. 1. Resume all of your medications. 2. Okay to use tylenol and ibuprofen over the counter as needed for pain. Use tramadol as needed for severe pain. 3. Ice packs and heating pads will also be useful for your pain. 4. Leave bandage in place for 24 hours, then remove. 5. Shower with warm soapy water. Pat dry. Use a bandaid if needed to protect your clothing. 6. No soaking or tub baths until I see you in the office. 7. No heavy lifting until I see you in the office. 8. Call the office (or go directly to the emergency room after hours) if you notice any of the following: Develop chills (warm to touch), or if you have a thermometer and your temperature is above 101 Difficulty breathing or difficultly swallowing Persistent vomiting Any bleeding ? exceeding one tablespoon 6. Call your physician if the site where your intravenous was started becomes red, swollen, painful, and warm to touch. Referrals: Azeem Lea MD [ [facility]] - (06/29 at 8 AM) Activity:: no heavy lifting Equipment/Supplies:: No Equipment Needed Diet:: As Tolerated DS: Summary Time Spent with Patient providing and/or coordinating discharge services: Greater than 30 minutes Status at Discharge Functional status at discharge: independent ambulation Overall status at discharge: patient is progressing back to baseline Mental Status: mental status grossly normal Speech and Movement: speech and movement normal Mood: congruent mood Affect: normal affect Exam Const General: cooperative, healthy appearing and comfortable Orientation: awake and oriented x3 Eyes General: appearance normal, both eyes and all related structures Conjunctivae: conjunctivae normal Sclera: sclerae normal Resp Effort & Inspection: normal respiratory effort and able to speak in complete sentences Cardio Jugular venous pressure: no JVD Rate: regular rate GI Inspection: non-distended Palpation: soft, no guarding, no hernias and tender (Tender at the surgical sites. Bandages are clean.) Auscultation: normal bowel sounds Skin General skin exam: normal turgor Neuro General: patient alert, patient awake and patient oriented x3 Cognition: normal cognition Extrem Right lower extremity: no edema Left lower extremity: no edema Psych Mental Status: mental status grossly normal Speech and Movement: speech and movement normal Mood: congruent mood Affect: normal affect DS: Data Vitals/I&O Vitals and I&O: Vital Signs Temperature 98.8 F 06/15/22 23:36 Temperature Source Tympanic 06/15/22 23:36 Pulse 73 06/15/22 23:36 Pulse Rhythm Regular 06/16/22 04:02 Respiratory Rate 15 06/15/22 23:36 Respiratory Effort Normal 06/16/22 04:02 Respiratory Depth Normal 06/16/22 04:02 Respiratory Pattern Normal 06/16/22 04:02 Blood Pressure 124/85 06/15/22 23:36 Blood Pressure Position Sitting 06/12/22 20:49 Pulse Oximetry 95 06/15/22 23:36 Oxygen Delivery Method Room Air 06/15/22 23:36 Oxygen Flow Rate 0 06/15/22 23:36 Pain Level 0 06/15/22 15:21 Intake & Output 06/15/22 06/15/22 06/16/22 11:59 23:59 11:59 Intake Total 2130 / 2996.667 866.667 / 2996.667 50 / 50 Balance 2130 / 2996.667 866.667 / 2996.667 50 / 50 Intake: IV 1150 / 2015.667 866.667 / 2016.667 50 / 50 Oral 980 / 980 Other: Urine Color Yellow Urine Appearance Clear Clear Clear Urine Odor Normal Comment pt stated voided x1 Voiding Methods Toilet Toilet Data Completed and Pending Labs on day of discharge: Labs from last 24 hours 06/16/22 06/16/22 06/16/22 05:44 05:44 05:35 WBC 4.18 L RBC 3.66 L Hgb 12.2 Hct 34.2 L MCV 93 MCH 33.3 H MCHC 35.7 RDW 12.7 Plt Count 146 MPV 11.6 H Sodium 147 H Cancelled Potassium 3.5 Cancelled Chloride 110 H Cancelled Carbon Dioxide 27.1 Cancelled Anion Gap 9.9 Cancelled BUN 9 Cancelled Creatinine 0.8 Cancelled Est GFR (CKD-EPI 2020) 85.89 Cancelled Glucose 95 Cancelled Calcium 8.9 Cancelled Total Bilirubin 1.1 H Cancelled AST 40 H Cancelled ALT 262 H Cancelled Alkaline Phosphatase 72 Cancelled Total Protein 5.8 L Cancelled Albumin 3.5 Cancelled Lipase 74 Cancelled PFSH All Active Problems Choledocholithiasis with obstruction (Acute) Increased endometrial stripe thickness (Acute) 01/2018. 11mm ES, incidental finding @ time of u/s for uterine fibroids. Benign path. Submucous leiomyoma of uterus (Acute 10/10/12) Fibroid uterus (Chronic 11/17/14) 10/2017. Uterus 13cm length. 2 fibroids ~ [id number] intramural. Medical History Uterine leiomyoma Currently not symptomatic. Expectant management planned Surgical History Tonsillectomy age 6yrs Family History Father No problems noted. Mother No problems noted. Social History Smoking/Tobacco Use Status: Former Tobacco Use Smoking risk assessment performed?: Yes Alcohol Intake: current Alcohol Intake frequency: 0-2 drinks per day Counseling given: Yes (recommended only 1 drink/day) Drug use: Rarely Substance use type: marijuana Details: a couple puffs every once in awhile Household members: spouse and other Details: Sho. children live near her. Number of Children: 2 current occupation: [employer]. 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
--- NOTE | 2022-06-16 10:07 | CHAPLAIN ---
Rosy was up walking around her room when I visited yesterday. Two family members were with her. Rosy went to [facility] on 06/14 for a procedure and will have surgery here today. She said she expected to be discharged home after the surgery.
--- NOTE | 2022-06-16 10:37 | W.ANESPRE ---
General Info Date of Service Date Performed: 06/16/22 Height: 5 ft 3 in Weight: 62.5 kg Body Mass Index (BMI): 24.4 Surgical Procedure: Operation Date: 06/16/22 11:10 Proposed Procedure Side Surgeon p Cholecystectomy Laparoscopic Azeem Lea MD Meds Allergies and Home Medications Allergies Allergy/AdvReac Type Severity Reaction Status Date / Time No Known Allergies Allergy Unverified 06/13/22 07:34 Home Medication Medication Instructions Recorded Magnesium 2 tab PO DAILY 10/10/12 [place] 2 tab PO DAILY 10/10/12 Vitamin C 1 tab PO DAILY 10/10/12 Vitamin D3 1 tab PO DAILY 10/10/12 multivitamin (Daily Multi-Vitamin 1 ea PO DAILY 10/10/12 tablet) Current Visit Medications: Current Medications Generic Name Dose Route Start Last Admin Trade Name Freq PRN Reason Stop Dose Admin Acetaminophen 650 mg 06/12/22 23:45 06/14/22 17:54 Acetaminophen 325 Mg Tab PO 650 mg Q4H PRN PRN Administration Docusate Sodium 100 mg 06/13/22 08:30 06/16/22 09:24 Docusate Sodium 100 Mg Cap PO Not Given BID [facility] Enoxaparin Sodium 40 mg 06/13/22 08:00 06/16/22 09:25 Enoxaparin 40 Mg/0.4 Ml Syr SC Not Given Q24H [facility] Piperacillin Sod/Tazobactam 50 mls @ 100 mls/hr 06/14/22 18:00 06/16/22 07:18 Sod 3.375 gm/ Sodium Chloride IVPB Infused Q6H [facility] Infusion Protocol IV Miscellaneous Supplies 1 each 06/12/22 23:45 Iv Access IV DIRECTED JANELL Lorazepam 0.5 mg 06/14/22 18:10 06/14/22 21:58 Lorazepam 0.5 Mg Tab PO 0.5 mg QID PRN PRN Administration Morphine Sulfate 2 mg 06/14/22 10:41 Morphine 2 Mg/Ml Syr IVP Q1H PRN PRN Ondansetron HCl 4 mg 06/12/22 23:38 Ondansetron 4 Mg/2 Ml Vial IVP Q4H PRN PRN Sodium Chloride 0 ml 06/12/22 23:38 06/16/22 05:18 Normal Saline Flush 10 Ml Syr IVP 10 ml PRN PRN Administration PFSH Active Problems Active Problems: Problem Status Onset Code Choledocholithiasis with obstruction K80.51 Increased endometrial stripe thickness R93.89 Submucous leiomyoma of uterus 10/10/12 D25.0 Fibroid uterus 11/17/14 D25.9 Medical History Medical History Uterine leiomyoma Currently not symptomatic. Expectant management planned Surgical History Surgical History Tonsillectomy age 6yrs Tobacco Smoking/Tobacco Use Status: Former Tobacco Use Alcohol Alcohol Intake: current Alcohol intake frequency: 0-2 drinks per day Substance Use Substance use: Rarely Substance use type: marijuana Details: a couple puffs every once in awhile Prental History History 2 Para Hx # Term Pregnancies Multiple births Hx # Pregnancies Ectopic pregnancies AB induced Hx Number of Living Children 2 AB spontaneous Vital Signs and Lab Results Vital Signs Most Recent Vital Signs in EMR: Most Recent Vital Signs Temp Pulse Resp BP Pulse Ox 37.4 C 83 16 152/69 H 97 06/16/22 07:45 06/16/22 07:45 06/16/22 07:45 06/16/22 07:45 06/16/22 07:45 Lab Results 06/16/22 05:44 06/16/22 05:44 Blood Type / Crossmatch: No Data to Display Complete Blood Count: White Blood Count 4.18 10^3/uL (4.4-10.8) L 06/16/22 05:44 Red Blood Count 3.66 10^6/uL (3.93-5.22) L 06/16/22 05:44 Hemoglobin 12.2 g/dL (11.2-15.7) 06/16/22 05:44 Hematocrit 34.2 % (36.0-46.0) L 06/16/22 05:44 Platelet Count 146 10^3/uL (130-400) 06/16/22 05:44 Complete Metabolic Panel: Sodium 147 mmol/L (136-145) H 06/16/22 05:44 Potassium 3.5 mmol/L (3.5-5.1) 06/16/22 05:44 Chloride 110 mmol/L (98-107) H 06/16/22 05:44 Carbon Dioxide 27.1 mmol/L (21.0-32.0) 06/16/22 05:44 BUN 9 mg/dL (7-18) 06/16/22 05:44 Creatinine 0.8 mg/dL (0.55-1.02) 06/16/22 05:44 Est GFR (CKD-EPI 2020) 85.89 (mL/min/1.73m2) 06/16/22 05:44 Magnesium 2.1 mg/dL (1.8-2.4) 06/15/22 05:52 Calcium 8.9 mg/dL (8.5-10.1) 06/16/22 05:44 Albumin 3.5 g/dL (3.4-5.0) 06/16/22 05:44 Glucose 95 mg/dL (74-106) 06/16/22 05:44 Liver Function Panel: Alanine Aminotransferase (ALT/SGPT) 262 U/L (14-59) H 06/16/22 05:44 Aspartate Amino Transf (AST/SGOT) 40 U/L (15-37) H 06/16/22 05:44 Coagulation Panel: INR International Normalized Ratio 1.0 (0.9-1.1) 06/12/22 22:51 Prothrombin Time 10.2 sec (9.3-11.0) 06/12/22 22:51 Activated Partial Thromboplast Time 24.0 sec (21.5-31.9) 06/12/22 22:51 Cardiac Panel: Troponin I < 50 ng/L (<or=60) 06/13/22 Arterial Blood Gas: No Data to Display Venous Blood Gas: No Data to Display Pancreas Panel: Lipase 74 U/L (16-77) 06/16/22 05:44 Thyroid Panel: No Data to Display Infectious Disease: Coronavirus (COVID-19)(PCR) Negative (Negative) 06/12/22 23:44 Coronavirus 2019 Source Nasal/Nares 06/12/22 23:44 Blood Cultures: No Data to Display Toxicology Panel: No Data to Display Imaging and Studies Imaging and Studies Study information below may be from another EMR and interpreted by another provider. Please see original notes in EMR for more complete details. EKG Summary: Conclusion Sinus rhythm...normal P axis, V-rate 60- 99 Probable left atrial enlargement...P >50mS, <-0.10mV V1 06/12/22 Anesthesia Assessment and Plan Anesthesia History Personal History: No History of Anesthesia Complications Family History: No Family History of Anesthesia Complications Exercise Tolerance Exercise Tolerance: Metabolic Equivalents>4 Pertinent Negatives Pertinent Negatives: No Symptoms of GERD, No Major Cardiovascular Symptoms or Complaints, No Major Pulmonary Symptoms or Complaints and No History of CVA/TIA Cardiac & Pulmonary Exam Cardiac Exam: Normal S1/S2 Heart Sounds Pulmonary Exam: Clear Bilateral Breath Sounds Implantable Cardiac Device Does patient have a Pacemaker or an ICD?: No Airway Exam Known Difficult Airway: No Mallampati Class: 1 Mouth Opening: Normal (> 3cm) Thyromental Distance: Greater than 3 cm Neck Range of Motion: Full ROM Neck Circumference: Normal Teeth Condition: Normal Dentition ASA Classification ASA Score: ASA 2 Emergency Case?: No NPO Status NPO Status: NPO Clears >2 hours, Solids >8 hours Anesthesia Plan Resuscitation Status: Full Code Anesthesia Technique: General Anesthesia Airway Planned: Endotracheal Tube Monitors Used: Standard Monitors Preoperative Comments:: BP elevated preop
[2022-06-16] MEDS: Lactated Ringers 1,000 ML 30 ML IV (10:55)
[2022-06-16] MEDS: Bupivacaine 0.25% Pres-Free 30 ML VIAL (11:19)
--- NOTE | 2022-06-16 12:45 | GB_PTH ---
PATIENT: Rosy Crowe LOC: U#:[id number] AGE/SX: 56/F [place] [facility]: Otoniel Gerardo IV, MD : 1965 BED: A DIS: 06/16/2022 SPEC #: [id number] RECD: 06/16/22 12:54 STATUS: SOUOtoniel REQ #: [id number] AMI: 06/16/22 12:[address]: Otoniel Gerardo IV DEPT: Surgical Specimen RECD BY: Jessie Bernabe ENTERED: 06/16/22 12:55 SP TYPE: GB OTHR DR: Gudelia Gay Tissues: 1 - GALLBLADDER Procedures: GROSS AND MICRO LEVEL 3 Comments: [id number]
--- NOTE | 2022-06-16 13:21 | W.PM.OP ---
Date of service: 06/16/22 Time of Service: 13:21 Operative Note Operative Note DATE OF PROCEDURE: 06/16/22 PRE-OP DIAGNOSIS: Cholelithiasis complicated by choledocholithiasis POST-OP DIAGNOSIS: same PROCEDURE: Laparoscopic cholecystectomy SURGEON: Azeem Lea AGRISCIENCE TECHNOLOGY INSTRUCTOR: Alpesh He ANESTHESIA TYPE: Local By Surgeon and General LMA/ETT Refer to Anesthesia Record ESTIMATED BLOOD LOSS: 50 PATHOLOGY: other (Gallbladder) COMPLICATIONS: None Patient was transported to: PACU Patient's condition: stable Indications: Rosy is a 56-year-old woman with cholelithiasis. Unfortunately, she experienced an episode of choledocholithiasis requiring ERCP. Based on the ongoing presence of gallstones within the gallbladder, I recommended cholecystectomy to minimize the chances of recurrent choledocholithiasis and complications such as gallstone pancreatitis Findings: Inflammation of the gallbladder infundibulum and neck Procedure Description: After satisfactory induction of general anesthesia, I prepped and draped the abdomen in usual fashion. Next, I began with a periumbilical incision. I dissected down to the fascia and elevated it with Luz Elena clamps. I incised it sharply. Next, I passed a 12 mm operating port in the umbilical site. I secured it to the fascia with 0 Vicryl stitches. I then insufflated the peritoneal cavity. Next I inserted a 5 mm 30 degree scope and examined the underlying viscera. There was no evidence of injury created upon entry. I then placed the patient in some reverse Trendelenburg and left side down positioning. Then, with the assistance of the laparoscope, I used local anesthetic to anesthetize the midepigastric and 2 right upper quadrant port sites. Under the vision of the laparoscope, I passed 3 more 5 mm ports. I then grasped the gallbladder fundus and elevated cephalad. There was greater omentum adherent to the mid body of the gallbladder, extending down onto the gallbladder neck and infundibulum. Using great care, I mobilized some of these adhesions off of the gallbladder. I worked in a lateral to medial fashion. There was a small amount of bleeding from the main portion of the omentum that was easily controlled with a surgical clip. I continued this dissection down along the gallbladder body towards the infundibulum. Again, there were dense adhesions in this area. In order to minimize the chances of injury to the distal cystic duct or common bile duct, I used great caution dissecting along the medial portion. I opened the peritoneal flexion using cautery, and gently dissected the gallbladder off of the gallbladder fossa. This allowed me to bring the dissection down along the posterior aspect towards the neck of the gallbladder. The cystic artery was skeletonized in this area, clearly identified by its pulsation heading into the gallbladder, and doubly clipped and divided. With this dissection complete, retracting the gallbladder body outwards, I was able to visualize the tapering of the gallbladder neck towards the cystic duct. I gently palpated the gallbladder neck and cystic duct to minimize the chances of disrupting gallstones downstream. The gallbladder neck and proximal cystic duct were quite dilated. Next, with a clear view of the gallbladder neck, I divided it from the cystic duct with a single fire of the LATOYA stapler. In order to accommodate that stapler, I did have to upsize the midepigastric port from 5 mm to 10 mm. I did this under the direct vision of the laparoscope. With the division of the gallbladder neck off of the cystic duct complete, I then mobilized the gallbladder off of the gallbladder fossa using electrocautery. I passed the gallbladder into an Endo Catch bag and removed it by way of the mid epigastric site. I examined the surgical field. It was hemostatic. I then removed the 5 mm ports under the vision of the laparoscope. Finally, I removed the umbilical port site and closed the fascia with Vicryl stitches. I also closed the fascia in the mid epigastric port site. All of the incisions were irrigated, and the skin was closed with subcuticular stitches. Bandages were applied, patient was awakened from anesthesia, and transferred to the recovery unit.
[2022-06-16] MEDS: fentaNYL 100 MCG/2 ML VIAL IVP ×2 (13:29→13:54)
--- NOTE | 2022-06-16 15:16 | ANES.POST_ITS ---
Postoperative Evaluation Vital Signs Most Recent Imported Vital Signs: Most Recent Vital Signs Temp Pulse Resp BP Pulse Ox 37.0 C 55 L 14 126/86 98 06/16/22 14:55 06/16/22 14:55 06/16/22 14:55 06/16/22 14:55 06/16/22 14:55 Pain Score Most Recent Pain Score: Most Recent Pain Score Pain Level [Mid Abdomen] 3 06/14/22 17:31 Pain Level 5 06/16/22 14:55
--- NOTE | 2022-06-16 15:18 | W.ANESPOSTOP ---
Postoperative Evaluation Date, Time and Location Date Performed: 06/16/22 Time Performed: 13:30 Patient Location: PACU Vital Signs Most Recent Imported Vital Signs: Most Recent Vital Signs Temp Pulse Resp BP Pulse Ox 37.0 C 55 L 14 126/86 98 06/16/22 14:55 06/16/22 14:55 06/16/22 14:55 06/16/22 14:55 06/16/22 14:55 Pain Score Most Recent Pain Score: Most Recent Pain Score Pain Level [Mid Abdomen] 3 06/14/22 17:31 Pain Level 5 06/16/22 14:55 Assessment Mental Status: Awake (Alert & Oriented to Patient Baseline) Airway and Respiratory Function: Patent airway with normal (patient baseline) respiratory exam Cardiovascular Function: Hemodynamically Stable Hydration Status: Adequately Hydrated Nausea & Vomiting: No Nausea or Vomiting Pain: Pain is tolerable per patient Peripheral Nerve Block: Patient did not receive a nerve block
--- NOTE | 2022-06-16 15:53 | CMPROGNOTE_ITS ---
- If Service Date Differs Date of service: 06/16/22 Time of Service: 15:53 Care Management Progress Note S/O: Rosy was lying in bed when CM met with her. She had been in surgery earlier today, and stated that she feels that everything went well, but she has some pain, which she thinks may be gas. She stated that per MD, she may be able to return home later today, if she is feeling ok and doing well post operatively. She reported that she is going to go for a walk in a little while, hoping to relieve some of the gas. She is independent at baseline, and does not require services upon discharge. Her is here visiting, and will drive her home when ready. CM will continue to follow. A: Rosy is a 56 year old female admitted to [facility] on 06/12/22 for choledocholithiasis. P: Anticipate Rosy will return home when medically cleared. Her will drive her home via private vehicle. She will follow up with her PCP and discharge plan of care. CM will continue to follow.
[2022-06-16] MEDS: Acetaminophen 325 MG TAB 650 MG PO (17:11)
== END 2022-06-16 17:20 | disposition home or self-care (01) | DRG 419 ==
LOC: ER 06-13 11:18 → MS 06-13 15:10
PROVIDERS: Physician Assistant; Surgery; Admitting Provider Surgery; Emergency Provider Student in an Organized Health Care Education/Training Program; PCP Naturopath; Visit Provider Surgery
PROC: 0FT44ZZ Resection of Gallbladder, Percutaneous Endoscopic Approach (ICD-10-PCS; CPT 47562; principal; 2022-06-16 11:00)
DX: K80.71 Calculus of gallbladder and bile duct without cholecystitis with obstruction (principal); D25.0 Submucous leiomyoma of uterus; Z87.891 Personal history of nicotine dependence
CPT/HCPCS: 47562; 36415; 80053; 83690; 85027; 87635; 93005; J1650; 74177; 81003; 81015; 83735; 84484; 85025; 85610; 85730; 87086; 88304; 93010; J0131; J1100; J1885; J2060; J2270; J2405; J2543; J2704; J3010; J3490

== ENCOUNTER 2023-06-19 10:47 | Outpatient (REF) | payer BC, SELFPAY ==
--- NOTE | 2023-06-19 10:30 | PAPFT_PTH ---
PATIENT: Rosy Crowe LOC: [facility] U#:[id number] AGE/SX: 57/F ROOM: RE06/19/[address]: Avril Montgomery : 1965 BED: DIS: 06/19/2023 SPEC #: [id number] RECD: 06/19/23 13:08 STATUS: WAGNER REDomitila #: [id number] AMI: 06/19/23 10:[address]: Avril Montgomery DEPT: [facility] Cytology RECD BY: Jessie Bernabe ENTERED: 06/19/23 13:08 SP TYPE: PAPFT OTHR DR: Gudelia Gay Tissues: 1 - CX/ENDOCX FOR PAP SMEARS Procedures: PAP THIN PREP/UVM Screening HPV DNA PROBE Comments: [id number]
== END 2023-06-19 10:48 | disposition home or self-care (01) ==
LOC: LBN 10:47
PROVIDERS: PCP Naturopath; Visit Provider Obstetrics & Gynecology Gynecology
DX: Z12.4 Encounter for screening for malignant neoplasm of cervix (principal); Z11.51 Encounter for screening for human papillomavirus (HPV)
CPT/HCPCS: 88142; 87624

== ENCOUNTER → 2023-07-07 00:15 | Outpatient (CLI) | payer BC, SELFPAY ==
--- NOTE | 2023-07-07 08:34 | DI.MAMMO_ITS ---
Exam(s) MAMMO SCREENING EXAM: MAMMO SCREENING CLINICAL HISTORY: screening TECHNIQUE: Mammograms were interpreted according to the usual protocol including computer analysis w [employer] CAD system, tomosynthesis and C-view imaging. COMPARISON: 2014 through 2021 FINDINGS: The breasts are composed of scattered fibroglandular densities, Breast Density category B. No suspicious masses or suspicious microcalcifications are seen. No skin thickening or abnormal axillary lymph nodes are seen. There has been no significant change from prior exams. IMPRESSION: BI-RADS Category 1, Negative mammogram Yearly screening mammography is recommended. Breast Density - Category B, scattered fibroglandular densities. A negative radiographic report should not delay biopsy if a dominant or clinically suspicious mass is present. Up to ten percent of cancers are not identified on mammography. A negative report may reinforce clinical impression. Adenosis and dense breasts may obscure an underlying neoplasm. False positive reports average 6 to 10%. Patient will receive a letter notifying them of these results.
== END ==
PROVIDERS: PCP Naturopath; Visit Provider Obstetrics & Gynecology Gynecology
DX: Z12.31 Encounter for screening mammogram for malignant neoplasm of breast (principal)
CPT/HCPCS: 77063; 77067

== ENCOUNTER 2023-07-07 02:05 | Outpatient (CLI) | payer BC, SELFPAY ==
[2023-07-07 09:08] LABS: ALT 24 U/L (14-59); AST 14 U/L (15-37); Albumin 4.5 g/dL (3.4-5.0); Alkaline Phosphatase 59 U/L (46-116); Anion Gap 7.7 mmol/L (3-11); BUN 18 mg/dL (7-18); Bilirubin, Total 2.6 mg/dL (0.2-1.0); CO2 30.3 mmol/L (21.0-32.0); CREATININE 0.8 mg/dL (0.55-1.02); Calcium 9.4 mg/dL (8.5-10.1); Calculated LDL 130 mg/dL (<100); Chloride 105 mmol/L (98-107); Cholesterol 237 mg/dL (<200); Estimated GFR 84.82 (mL/min/1.73m2); Glucose 104 mg/dL (74-106); HDL Cholesterol 92 mg/dL (40-60); Sodium 143 mmol/L (136-145); TSH (W/Ref FT4) 5.36 uIU/mL (0.36-3.74); Total Protein 7.3 g/dL (6.4-8.2); Triglyceride 75 mg/dL (<150)
[2023-07-07 09:45] LABS: FREE T4 0.99 ng/dL (0.76-1.46)
== END 2023-07-07 02:06 | disposition home or self-care (01) ==
LOC: LBO 02:05
PROVIDERS: PCP Naturopath; Visit Provider Obstetrics & Gynecology Gynecology
DX: Z00.00 Encounter for general adult medical examination without abnormal findings (principal); R63.5 Abnormal weight gain
CPT/HCPCS: 36415; 80053; 80061; 84439; 84443

== ENCOUNTER 2024-08-12 01:18 | Outpatient (CLI) | payer OTHER, SELFPAY ==
--- NOTE | 2024-08-12 11:57 | DI.MAMMO_ITS ---
Exam(s) MAMMO SCREENING EXAM: MAMMO SCREENING CLINICAL HISTORY: screening. TECHNIQUE: Bilateral full field digital CC and MLO mammographic images were obtained with 3D tomosyn thesis and utilizing computer aided detection (CAD). COMPARISON: Prior mammograms were reviewed. FINDINGS: There has been no significant change in the appearance and distribution of the fibroglandular tissue. There are no CAD designations. There are no new spiculated masses nor malignant appearing microcalcification groups. There is no significant architectural distortion nor skin thickening-retraction. IMPRESSION: No radiographic evidence of malignancy. BI-RADS Category 1 - Negative Breast Density - Category B - There are scattered areas of fibroglandular density. Breast density Category C or D implies that the patient has dense breast tissue. Dense breast tissue can make it harder to find cancer on a mammogram. Dense breast tissue is also associated with an incr eased risk of breast cancer. This information about the result of the mammogram report was provided to the patient to raise their awareness. Use this report when you speak with the patient about their risks for breast cancer, which includes their family history. At that time, you may recommend additional screening tests (Ultrasoun d or MRI) as these tests may add significant information. A negative radiographic report should not delay biopsy if a dominant or clinically suspicious mass is present. Up to ten percent of cancers are not identified on mammography. A negative report may reinforce clinical impression. Adenosis and dense breasts may obscure an underlying neoplasm. False positive reports average 6 to 10%. Patient will receive a letter notifying them of these results.
== END 2024-08-12 01:38 ==
PROVIDERS: PCP Naturopath; Visit Provider Obstetrics & Gynecology
DX: Z12.31 Encounter for screening mammogram for malignant neoplasm of breast (principal); R92.323 Mammographic fibroglandular density, bilateral breasts
CPT/HCPCS: 77063; 77067